=== PATIENT | female | born 1960 | race Caucasian/White ===

== ENCOUNTER 2024-02-22 07:37 | Emergency (ER) | payer OTHER ==
[~2024-02-22] VITALS: Ht 157.5 cm; Wt 54.9 kg
[2024-02-22] MEDS ORDERED: HYDROmorphone HCL 1 MG/ML SYR IV PRN (08:00)
[2024-02-22 08:12] LABS: BASOPHILS 0.4 % (0-2); EOSINOPHILS 2.8 % (0-6); HEMATOCRIT 41.9 % (35.0-50.0); HEMOGLOBIN 13.9 g/dL (12.0-18.0); MCH 30.3 (27-36); MCHC 33.1 g/dl (30-36); MCV 91.5 fl (81-99); MONOCYTES 7.2 % (0-12); NEUTROPHILS 66.6 % (39-80); PLATELET COUNT 402 K/uL (140-440); RBC 4.58 M/ul (4.3-5.7); RDW 13.4 (10.5-15.0)
[2024-02-22 08:25] LABS: ALBUMIN 3.9 g/dL (3.4-5.0); ALBUMIN/GLOBULIN RATIO 1.15 (1.1-2.4); BILIRUBIN, TOTAL 0.5 ng/dL (0.2-1.0); BUN/CREATININE RATIO 8.53 (6.0-28.6); CALCIUM 9.2 mg/dL (8.5-10.1); CREATININE, SERUM 0.82 mg/dL (0.55-1.02); PROTEIN, TOTAL 7.3 g/dL (6.4-8.2)
[2024-02-22] MEDS ORDERED: ondansetron HCL 4 MG/2 ML VIAL IV ONE (08:45)
[2024-02-22] MEDS ORDERED: KETOROLAC TROMETHAMINE 15 MG/ML VIAL IV ONE (09:00)
[2024-02-22] MEDS ORDERED: HYDROCODON-ACE1 EA10 PO (09:21)
[2024-02-22 10:00] VITALS: BP 125/73
== END 2024-02-22 10:00 | disposition home or self-care (01) ==
LOC: ED 07:37
PROVIDERS: Emergency Medicine
DX: S16.1XXA Strain of muscle, fascia and tendon at neck level, initial encounter (principal); X58.XXXA Exposure to other specified factors, initial encounter; Y93.E8 Activity, other personal hygiene; R11.2 Nausea with vomiting, unspecified
CPT/HCPCS: 36415; 70450; 80053; 85025; 85651; 96374; 96375; 96376; 99284-25; J1170; J1885; J2405